=== PATIENT | male | born 1995 | race Caucasian/White ===

== ENCOUNTER 2019-08-05 20:39 | Emergency (ER) | payer OTHER ==
[~2019-08-05] VITALS: Ht 170.2 cm; Wt 68.0 kg
[2019-08-05] MEDS ORDERED: BENADRYL25 MG (20:48)
[2019-08-05] MEDS ORDERED: WELLBUTRIN SR200 MG (20:48)
[2019-08-05] MEDS ORDERED: DEPAKOTE ER250 MG (20:48)
== END 2019-08-05 23:39 | disposition home or self-care (01) ==
LOC: ER 20:39
DX: S61.442A Puncture wound with foreign body of left hand, initial encounter (principal); S20.112A Abrasion of breast, left breast, initial encounter; Y35.491A Legal intervention involving other sharp objects, law enforcement official injured, initial encounter; Y93.89 Activity, other specified; Y92.89 Other specified places as the place of occurrence of the external cause; Y99.8 Other external cause status